=== PATIENT | female | born 1995 | race Caucasian/White ===

== ENCOUNTER 2020-09-14 15:38 | Emergency (ER) | payer OTHER, SELFPAY ==
[2020-09-14 15:48] VITALS: BP 135/77; PULSE 66; RESP 15; TEMP 36.2; O2SAT 100
[2020-09-14 16:07] LABS: Basophils Percent Auto 0.3 % (0.2-1.2); Eosinophils Absolute Auto 0.1 K/mm3 (0-0.3); Eosinophils Percent Auto 1.6 % (0-4.4); Hematocrit 37.9 % (37.0-47.0); Hemoglobin 12.7 g/dL (12.0-15.0); Immature Granulocyte Absolute 0.01 K/mm3 (0.00-0.031); Immature Granulocyte Percent A 0.2 % (0-0.5); Lymphocytes Absolute Auto 2.12 K/mm3 (0.9-3.2); Lymphocytes Percent Auto 37.1 % (18.3-44.2); Mean Corpuscular HGB Conc 33.5 g/dl (32-36); Mean Corpuscular Hemoglobin 29.3 pg (26-34); Mean Corpuscular Volume 87.5 fl (80-100); Mean Platelet Volume 10.4 fl (7.4-10.4); Monocytes Absolute Auto 0.3 K/mm3 (0.1-0.6); Monocytes Percent Auto 5.2 % (2.6-8.5); Neutrophils Absolute Auto 3.2 K/mm3 (1.3-6.7); Neutrophils Percent Auto 55.6 % (45.5-73.1); Platelet Count Result 269 k/mm3 (150-375); Red Blood Count 4.33 M/mm3 (4.2-5.4); Red Cell Distribution Width 12.5 % (11.5-14.5); White Blood Count 5.7 K/mm3 (4.5-10.0)
[2020-09-14 16:19] LABS: Alanine Aminotransferase 23 U/L (4-35); Albumin Level 4.2 g/dL (3.5-5.1); Alkaline Phosphatase 54 U/L (38-126); Anion Gap 3 mmol/L (8-16); Aspartate Amino Transferase 27 U/L (14-36); Bilirubin,Total 0.3 mg/dL (0.2-1.3); Blood Urea Nitrogen 12 mg/dL (7-17); Calcium 9.1 mg/dL (8.4-10.2); Carbon Dioxide 30 mmol/L (22-30); Chloride 106 mmol/L (98-107); Estimated CRCL calculation 91 ml/min; Estimated Glomerular Filt Rate > 60; Glucose 119 mg/dL (65-105); Potassium 3.9 mmol/L (3.4-5.0); Sodium 139 mmol/L (137-145)
[2020-09-14 16:29] VITALS: BP 140/86; PULSE 67; RESP 18; TEMP 36.5; O2SAT 100
[2020-09-14 16:46] LABS: Add Urine Microscopic? YES; Appearance Urine Clear (Clear); Bilirubin Urine Negative (Negative); Blood Urine 2+ (Negative); Color Urine Yellow (Yellow); Glucose Urine UA Negative (Negative); Ketones Urine Trace mg/dL (Negative); Leukocyte Esterase Ur Negative LEU/UL (Negative); Mucus Urine Rare /lpf; Nitrate Urine Negative (Negative); Protein Urine 1+ mg/dL (Negative); RBC Urine >75 /hpf (0-2); Specific Grav Ur 1.021 (1.001-1.035); Squamous Epithelial Cell Urine Occasional /hpf (Few); WBC Urine 0-3 /hpf
--- NOTE | 2020-09-14 17:10 | ED.FEMALEGU ---
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 Reports she has had very heavy bleeding since her period started 2 days ago. Reports she had her IUD taken out at the beginning of this year and has had heavy periods since. Reports she felt lightheaded when she stood up today which prompted her to be seen. Denies fever, abdominal pain, nausea, vomiting, or dysuria. Related Data Home Medications Medication Instructions Recorded Confirmed cetirizine mg 07/09/19 hydroxyzine HCl 09/14/20 Allergies Allergy/AdvReac Type Severity Reaction Status Date / Time No Known Allergies Allergy Verified 09/14/20 16:40 Review of Systems Review of Systems: Narrative: CONSTITUTIONAL: Denies fever GASTROINTESTINAL: Denies abdominal pain, nausea, vomiting GENITOURINARY: Denies dysuria All systems reviewed & are unremarkable except as noted in HPI and below [facility] Past Medical History Medical History (Updated 09/14/20 @ 18:14 by Sosa Silva PA-C) History of insomnia Social History Social History (Updated 09/14/20 @ 17:14 by Sosa Silva PA-C) Smoking status: Former smoker Additional smoking assessment comments: Quit smoking in 2012 Gender identity (if verbalized by the patient): Female Exam Narrative: Exam Narrative: GENERAL: Well-appearing, obese, and in no acute distress. HEAD: Normocephalic, atraumatic. EYES: EOMI. CHEST: Clear to auscultation. No respiratory distress. No wheezes rales or rhonchi HEART: Regular rate and rhythm. No murmur heard. Normal peripheral pulses. ABDOMEN: Soft, nontender, nondistended, normal active bowel sounds. EXTREMITIES: Normal range of motion. No edema. SKIN: Warm, dry, no rash. NEURO: No focal deficits. Alert and oriented x3. PSYCH: Normal mood and affect PELVIC: Normal external genitalia. Normal appearing cervix. Small amount of blood in the vaginal vault, slowly oozing from cervix Course Consultations Consultation #1: Spoke with Dr. Hurford about patient and work-up. Patient is to follow-up in clinic next week for further control planning. Date: 09/14/20 Time: 18:12 Vital Signs Vital signs: Vital Signs Temperature 97.1 F L 09/14/20 15:48 Pulse Rate 66 09/14/20 15:48 Respiratory Rate 15 09/14/20 15:48 Blood Pressure 135/77 09/14/20 15:48 Pulse Oximetry 100 09/14/20 15:48 Temperature 97.7 F 09/14/20 16:29 Pulse Rate 67 09/14/20 16:29 Respiratory Rate 18 09/14/20 16:29 Blood Pressure 140/86 09/14/20 16:29 Pulse Oximetry 100 09/14/20 16:29 MDM - Female Genitourinary MDM Narrative Medical decision making narrative: Patient presents the emergency department for heavy menstrual periods. Reports she has been having heavier cycles since she had her ADLs. Vitals are stable today. No concerning bleeding on exam. Hemoglobin is 12.7. UA without evidence of infection. Bedside test is negative. Patient was updated on case findings. Spoke with Dr. Lucas about patient and work-up. Patient is to follow-up in clinic next week for further control planning. She is stable and felt appropriate for further outpatient evaluation. She was given warnings to return to the ER Lab Data Attestation: I reviewed the patient's lab results. Result diagrams: 09/14/20 15:56 09/14/20 15:56 Labs: Lab Results 09/14/20 09/14/20 09/14/20 Range/Units 15:56 15:56 16:36 WBC 5.7 (4.5-10.0) K/mm3 RBC 4.33 (4.2-5.4) M/mm3 Hgb 12.7 (12.0-15.0) g/dL Hct 37.9 (37.0-47.0) % MCV 87.5 (80-100) fl MCH 29.3 (26-34) pg MCHC 33.5 (32-36) g/dl RDW 12.5 (11.5-14.5) %
[2020-09-14 18:05] VITALS: BP 121/56; PULSE 60; RESP 18; O2SAT 100
[2020-09-14 18:07] VITALS: BP 122/71; PULSE 64
[2020-09-14 18:09] VITALS: BP 121/71; PULSE 67
== END 2020-09-14 18:33 | disposition home or self-care (01) ==
PROVIDERS: Family Medicine; Physician Assistant; Emergency Provider Emergency Medicine; PCP Family Medicine
DX: N93.9 Abnormal uterine and vaginal bleeding, unspecified (principal); Z87.891 Personal history of nicotine dependence
CPT/HCPCS: 36415; 80053; 81001; 81025; 85025; 99284

== ENCOUNTER 2020-10-17 10:39 | Outpatient (CLI) | payer OTHER, SELFPAY ==
--- NOTE | 2020-10-17 11:30 | NEURO_ITS ---
Impression: # Complains of itching all over the body # Evolving Carpal Tunnel Syndrome. # No ulnar neuropathy. # No evidence of neuropathy. # Normal needle/EMG exam. Nerve Conduction Studies Anti Sensory Summary Table Stim Site NR Peak (ms) P-T Amp (?V) Site1 Site2 Delta-P (ms) Dist (cm) Art (m/s) Left Median Anti Sensory (2-3nd Digit) Wrist 2.7 85.8 Wrist 2-3nd Digit 2.7 14.0 52 Wrist 2.7 78.4 Wrist 2-3nd Digit 2.7 14.0 52 Right Median Anti Sensory (2-3nd Digit) Wrist 2.5 35.8 Wrist 2-3nd Digit 2.5 14.0 56 Wrist 2.6 41.6 Wrist 2-3nd Digit 2.5 14.0 56 Left Radial Anti Sensory (Base 1st Digit) Wrist 1.8 28.1 Wrist Base 1st Digit 1.8 0.0 Right Radial Anti Sensory (Base 1st Digit) Wrist 2.0 33.7 Wrist Base 1st Digit 2.0 0.0 Left Ulnar Anti Sensory (5th Digit) Wrist 2.1 43.3 Wrist 5th Digit 2.1 14.0 67 Right Ulnar Anti Sensory (5th Digit) Wrist 2.1 59.8 Wrist 5th Digit 2.1 14.0 67 Motor Summary Table Stim Site NR Onset (ms) O-P Amp (mV) Site1 Site2 Delta-0 (ms) Dist (cm) Art (m/s) Left Median Motor (Abd Poll Brev) Wrist 3.4 3.4 Elbow Wrist 3.8 26.0 68 Elbow 7.2 6.0 Right Median Motor (Abd Poll Brev) Wrist 3.7 2.6 Elbow Wrist 4.4 25.0 57 Elbow 8.1 1.9 Left Ulnar Motor (Abd Dig Minimi) Wrist 2.1 10.9 A Elbow Wrist 4.1 25.0 61 A Elbow 6.2 9.3 Right Ulnar Motor (Abd Dig Minimi) Wrist 2.2 10.7 A Elbow Wrist 4.4 27.0 61 A Elbow 6.6 10.1 F Wave Studies NR F-Lat (ms) L-R F-Lat (ms) Left Median (Mrkrs) (Abd Poll Brev) 25.55 2.42 Right Median (Mrkrs) (Abd Poll Brev) 27.97 2.42 Left Ulnar (Mrkrs) (Abd Dig Min) 25.11 1.62 Right Ulnar (Mrkrs) (Abd Dig Min) 26.73 1.62 EMG Side Muscle Nerve Root Ins Act Fibs Amp Dur Recrt Comment Right 1stDorInt Ulnar C8-T1 Nml Nml Nml Nml Nml Right Ext Indicis Radial (Post Int) C7-8 Nml Nml Nml Nml Nml Right Ext Digitorum Radial (Post Int) C7-8 Nml Nml Nml Nml Nml Right BrachioRad Radial C5-6 Nml Nml Nml Nml Nml Right PronatorTeres Median C6-7 Nml Nml Nml Nml Nml Right Abd Poll Brev Median C8-T1 Nml Nml Nml Nml Nml Left 1stDorInt Ulnar C8-T1 Nml Nml Nml Nml Nml Left Ext Indicis Radial (Post Int) C7-8 Nml Nml Nml Nml Nml Left Ext Digitorum Radial (Post Int) C7-8 Nml Nml Nml Nml Nml Left BrachioRad Radial C5-6 Nml Nml Nml Nml Nml Left PronatorTeres Median C6-7 Nml Nml Nml Nml Nml Left Abd Poll Brev Median C8-T1 Nml Nml Nml Nml Nml MTDD
== END 2020-10-17 10:40 | disposition home or self-care (01) ==
LOC: ANHNEURO 10:40
PROVIDERS: PCP Family Medicine; Visit Provider Family Medicine
DX: R20.2 Paresthesia of skin (principal)
CPT/HCPCS: 95886; 95911

== ENCOUNTER 2021-03-02 22:09 | Emergency (ER) | payer OTHER, SELFPAY ==
--- NOTE | ~2021-03-02 | US_ITS ---
EXAMINATION: US OB <=14 wk fetus w TV DATE: 03/02/2021 23:38 INDICATION: Bleeding during first trimester TECHNIQUE: Real-time pelvic transabdominal and transvaginal ultrasound was performed. COMPARISON: None. FINDINGS: The uterus measures 12.9 x 7.1 x 6.8 cm. No intrauterine gestational sac is identified. Th ere is mild thickening of the endometrium which measures up to 17 mm. The right ovary measures 2.6 x 1.3 x 1.7 cm. The left ovary measures 4.4 x 2.6 x 2.5 cm. There is a 2.7 x 1.8 x 1.9 cm cystic lesion of the left ovary with a peripheral isoechoic component. There is normal vascular flow in the ovarie s. There is no free fluid in the pelvis. IMPRESSION: 1. of unknown location. Although no intrauterine gestational sac is seen, this may be due t o early gestation. If the patient is clinically stable, recommend followup with serial beta-hCG and u ltrasound. Reviewed, dictated and finalized at location A. IMPRESSION: 1. of unknown location. Although no intrauterine gestational sac is s een, this may be due to early gestation. If the patient is clinically stable, r ecommend followup with serial beta-hCG and ultrasound.
[2021-03-02 22:11] VITALS: BP 123/67; PULSE 87; RESP 12; TEMP 36.7; O2SAT 98
--- NOTE | 2021-03-02 22:35 | ED.GENADULT ---
HPI - General Adult General Chief complaint: Vaginal Bleeding Stated complaint: and spotting. Time Seen by Provider: 03/02/21 22:23 Source: RN notes reviewed History of Present Illness HPI narrative: Patient presents emergency department from home for vaginal spotting. Patient states that she began to have some vaginal spotting this evening. She states that she just found out she had a positive test earlier this week. The patient is G6, P3 and is followed by Dr. Lucas. States she has a history of a recent miscarriage in December she states she has had some intermittent episodes of brief 1 to 2 seconds of sharp stabbing lower abdominal pain over the past week but denies any pain at this time she denies any fevers or chills nausea vomiting Related Data Home Medications Medication Instructions Recorded Confirmed cetirizine mg 07/09/19 hydroxyzine HCl 09/14/20 Allergies Allergy/AdvReac Type Severity Reaction Status Date / Time No Known Allergies Allergy Verified 09/14/20 16:40 Review of Systems Review of Systems: Gen.: Denies fevers or chills ENT: Denies congestion Respiratory: Denies shortness of breath or cough CV: Denies chest pain or palpitations GI: Denies nausea, emesis or diarrhea reports intermittent episodes of sharp stabbing lower abdominal pain no pain currently see HPI Musculoskeletal: Denies back pain or muscle pain Neuro: Denies numbness, tingling, weakness or focal weakness Skin: Denies rash Except as documented, all other systems reviewed and negative [facility] Past Medical History Medical History History of insomnia Social History Social History Smoking status: Former smoker Additional smoking assessment comments: Quit smoking in 2012 Gender identity (if verbalized by the patient): Female Exam Narrative: APPEARANCE: No acute distress, nontoxic, resting in bed EYES: EOMI HEENT: Normocephalic, atraumatic, OMM RESPIRATORY: No respiratory distress Clear to auscultation bilaterally with no rhonchi wheezing or rales. CARDIOVASCULAR: Regular rate and rhythm without murmurs rubs or gallops. ABDOMINAL: Soft, nontender, nondistended, no rebound or guarding MUSCULOSKELETAl: Moves all extremities. NEURO: Awake and alert. Following commands, speech normal, no focal deficits SKIN:: Warm, dry. No rashes lesions or abrasions PSYCHIATRIC: Normal affect/mood, Course Course Emergency Course: Discussed Dr. Lucas presentation work-up agrees plan for discharge to follow-up as an outpatient Reviewed old records patient had AB+ blood type from 03/10/2017 Discussed with patient results of workup and diagnosis. Discussed need for follow-up with primary care, proper use of medication, and reasons to return to the emergency department. Patient understands and agrees to current treatment plan Vital Signs Vital signs: Vital Signs Temperature 98.0 F 03/02/21 22:11 Pulse Rate 87 03/02/21 22:11 Respiratory Rate 12 03/02/21 22:11 Blood Pressure 123/67 03/02/21 22:11 Pulse Oximetry 98 03/02/21 22:11 Temperature 98.0 F 03/02/21 22:11 Pulse Rate 81 03/03/21 00:17 Respiratory Rate 17 03/03/21 00:17 Blood Pressure 130/74 03/03/21 00:17 Pulse Oximetry 99 03/03/21 00:17 Medical Decision Making Vital Signs Vital Signs: Vital Signs Temperature 98.0 F 03/02/21 22:11 Pulse Rate 87 03/02/21 22:11 Respiratory Rate 12 03/02/21 22:11 Blood Pressure 123/67 03/02/21 22:11 Pulse Oximetry 98 03/02/21 22:11 Temperature 98.0 F 03/02/21 22:11 Pulse Rate 81 03/03/21 00:17 Respiratory Rate 17 03/03/21 00:17 Blood Pressure 130/74 03/03/21 00:17 Pulse Oximetry 99 03/03/21 00:17 Lab Data Result diagrams: 03/02/21 22:50 Labs: Lab Results 03/02/21 03/02/21 03/02/21 Range/Units 22:44 22:50 22:50 WBC
[2021-03-02 23:02] LABS: Basophils Percent Auto 0.3 % (0.2-1.2); Eosinophils Absolute Auto 0.1 K/mm3 (0-0.3); Eosinophils Percent Auto 0.9 % (0-4.4); Hemoglobin 12.4 g/dL (12.0-15.0); Immature Granulocyte Absolute 0.02 K/mm3 (0.00-0.031); Immature Granulocyte Percent A 0.3 % (0-0.5); Lymphocytes Absolute Auto 2.43 K/mm3 (0.9-3.2); Lymphocytes Percent Auto 30.6 % (18.3-44.2); Mean Corpuscular HGB Conc 33.5 g/dl (32-36); Mean Corpuscular Hemoglobin 29.8 pg (26-34); Mean Corpuscular Volume 88.9 fl (80-100); Mean Platelet Volume 10.3 fl (7.4-10.4); Monocytes Absolute Auto 0.4 K/mm3 (0.1-0.6); Monocytes Percent Auto 5.4 % (2.6-8.5); Neutrophils Percent Auto 62.5 % (45.5-73.1); Platelet Count Result 262 k/mm3 (150-375); Red Blood Count 4.16 M/mm3 (4.2-5.4); Red Cell Distribution Width 12.6 % (11.5-14.5); White Blood Count 7.9 K/mm3 (4.5-10.0)
[2021-03-02 23:09] LABS: Add Urine Microscopic? YES; Appearance Urine Clear (Clear); Bilirubin Urine Negative (Negative); Blood Urine Negative (Negative); Color Urine Yellow (Yellow); Glucose Urine UA Negative (Negative); Ketones Urine Negative (Negative); Leukocyte Esterase Ur Negative LEU/UL (Negative); Mucus Urine Rare /lpf; Nitrate Urine Negative (Negative); Protein Urine Negative (Negative); Specific Grav Ur 1.028 (1.001-1.035); Squamous Epithelial Cell Urine Moderate /hpf (Few); WBC Urine 0-3 /hpf
[2021-03-03 00:17] VITALS: BP 130/74; PULSE 81; RESP 17; O2SAT 99
[2021-03-03 01:18] VITALS: BP 121/80; PULSE 74; RESP 15; O2SAT 100
== END 2021-03-03 01:19 | disposition home or self-care (01) ==
PROVIDERS: Emergency Provider Emergency Medicine; PCP Family Medicine
DX: O20.0 Threatened abortion (principal); Z87.891 Personal history of nicotine dependence; Z3A.01 Less than 8 weeks gestation of pregnancy
CPT/HCPCS: 36415; 76801; 76817; 81001; 81025; 84702; 85025; 85461; 99284

== ENCOUNTER 2021-03-05 13:21 | Outpatient (RCR) | payer OTHER, SELFPAY | END 2021-03-09 23:59 | disposition home or self-care (01) | LOC: ANHLAB 13:21 | PROVIDERS: PCP Family Medicine; Visit Provider Obstetrics & Gynecology | DX: N92.5 Other specified irregular menstruation (principal) | CPT/HCPCS: 36415; 84702 ==

== ENCOUNTER 2021-03-12 12:25 | Outpatient (CLI) | payer OTHER, SELFPAY | END 2021-03-12 12:26 | disposition home or self-care (01) | PROVIDERS: PCP Family Medicine; Visit Provider Obstetrics & Gynecology | DX: O20.0 Threatened abortion (principal) | CPT/HCPCS: 36415; 84702 ==

== ENCOUNTER 2021-04-15 14:17 | Emergency (ER) | payer OTHER, SELFPAY ==
[2021-04-15 14:37] VITALS: BP 122/69; PULSE 90; RESP 16; TEMP 36.6; O2SAT 100
[2021-04-15 17:34] VITALS: BP 127/70; PULSE 93; RESP 18; O2SAT 100
--- NOTE | 2021-04-15 18:46 | ED.GENADULT ---
HPI - General Adult General Chief complaint: Unspecified <Dilma Balderas PA-C - Last Filed: 04/15/21 18:58> Stated complaint: my cervix is sticking out <Dilma Balderas PA-C - Last Filed: 04/15/21 18:58> Time Seen by Provider: 04/15/21 17:29 <Dilma Balderas PA-C - Last Filed: 04/15/21 18:58> Source: patient <Dilma Balderas PA-C - Last Filed: 04/15/21 18:58> Mode of arrival: ambulatory <Dilma Balderas PA-C - Last Filed: 04/15/21 18:58> Limitations: no limitations <SHEILA Brice Last Filed: 04/15/21 18:58> History of Present Illness HPI narrative: Patient is G6, P3 with chief complaint of feeling her cervix hanging out of her vagina. Patient states that she feels a pressure-like sensation in her vaginal cavity. Patient denies any vaginal bleeding or discharge. Patient denies any vaginal or pelvic cramping. Patient states that her MANAGER MEAT is Dr. Lucas. She reports she has had 2 prior miscarriages. Patient denies having a cerclage in place. Patient denies any other symptoms. <Dilma Balderas PA-C - Last Filed: 04/15/21 18:58> Related Data Home medications: Home Medications Medication Instructions Recorded Confirmed cetirizine mg 07/09/19 hydroxyzine HCl 09/14/20 <Dilma Balderas PA-C - Last Filed: 04/15/21 18:58> Allergies/adverse reactions: Allergies Allergy/AdvReac Type Severity Reaction Status Date / Time No Known Allergies Allergy Verified 04/15/21 17:28 <SHEILA Brice Last Filed: 04/15/21 18:58> Review of Systems Review of Systems: CONSTITUTIONAL: Denies fever, chills, or sweats. EYES: Denies visual changes, redness, or discharge. ENT: Denies rhinorrhea, congestion, sore throat, or otalgia. CARDIOVASCULAR: Denies chest pain, palpitations, or edema. RESPIRATORY: Denies cough or dyspnea. GASTROINTESTINAL: Denies abdominal pain, nausea, vomiting, or diarrhea. GENITOURINARY: Reports vaginal complaint denies dysuria or hematuria. SKIN: Denies rash or itching. MUSCULOSKELETAL: Denies back pain, joint pain, or myalgia. NEUROLOGIC: Denies headache, numbness, dizziness, or weakness. PSYCHIATRIC: Denies anxiety or depression. <Dilma Balderas PA-C - Last Filed: 04/15/21 18:58> PMFSH Past Medical History Medical History: Medical History History of insomnia <Dilma Balderas PA-C - Last Filed: 04/15/21 18:58> Social History Social History: Social History Smoking status: Former smoker Additional smoking assessment comments: Quit smoking in 2012 Gender identity (if verbalized by the patient): Female <Dilma Balderas PA-C - Last Filed: 04/15/21 18:58> Exam Narrative: GENERAL: Well-appearing, well-nourished, and in no acute distress. HEAD: Normocephalic, atraumatic. EYES: PERRLA and EOMI. CHEST: Clear to auscultation. No respiratory distress. No wheezes rales or rhonchi HEART: Regular rate and rhythm. No murmur heard. Normal peripheral pulses. PELVIC: Cervix is sitting pretty low in the vaginal canal approx 5-6 inches inward. cervical mucus plug present. No bleeding or tissues noted. Not tender with exam. EXTREMITIES: Normal range of motion. No edema. SKIN: Warm, dry, no rash. NEURO: No focal deficits. Alert and oriented x3. PSYCH: Normal mood and affect. <Dilma Balderas PA-C - Last Filed: 04/15/21 18:58> Course Vital Signs Vital signs: Vital Signs Temperature 36.6 C 04/15/21 14:37 Pulse Rate 90 04/15/21 14:37 Respiratory Rate 16 04/15/21 14:37 Blood Pressure 122/69 04/15/21 14:37 Pulse Oximetry 100 04/15/21 14:37 Temperature 36.6 C 04/15/21 14:37 Pulse Rate 93 04/15/21 17:34 Respiratory Rate 18 04/15/21 17:34 Blood Pressure 127/70 04/15/21 17:34 Pulse Oximetry 100 04/15/21 17:34 <Dilma Balderas PA-C - Last Filed: 04/15/21 18:58> Medi
== END 2021-04-15 19:02 | disposition home or self-care (01) ==
PROVIDERS: Emergency Provider Emergency Medicine; PCP Family Medicine
DX: Q51.9 Congenital malformation of uterus and cervix, unspecified (principal)
CPT/HCPCS: 99284

== ENCOUNTER 2021-04-25 10:51 | Outpatient (RCR) | payer OTHER, SELFPAY ==
[2021-04-25 12:24] LABS: Hematocrit 35.6 % (37.0-47.0); Hemoglobin 12.3 g/dL (12.0-15.0); Mean Corpuscular HGB Conc 34.6 g/dl (32-36); Mean Corpuscular Hemoglobin 31.7 pg (26-34); Mean Corpuscular Volume 91.8 fl (80-100); Mean Platelet Volume 10.5 fl (7.4-10.4); Platelet Count Result 205 k/mm3 (150-375); Red Blood Count 3.88 M/mm3 (4.2-5.4); Red Cell Distribution Width 12.8 % (11.5-14.5); White Blood Count 10.5 K/mm3 (4.5-10.0)
[2021-04-25 12:29] LABS: Glucose 1 Hour PP 50gm Dose 118 mg/dL
[2021-04-25 13:11] LABS: HIV 1/2 Ab P24 Ag Result Negative (Negative)
[2021-04-25 13:13] LABS: Hepatitis B Surface Antigen Negative (Negative); Rubella IgG Antibody 15.9 IU/ML
[2021-04-28 07:23] LABS: Rapid Plasma Reagin Non-Reactive (NonReactive)
[2021-04-30 09:18] LABS: CMV IgG Antibody <0.60 U/mL (<0.60)
== END 2021-07-24 23:59 | disposition home or self-care (01) ==
LOC: ANHLAB 10:51
PROVIDERS: PCP Family Medicine; Visit Provider Obstetrics & Gynecology
DX: Z34.91 Encounter for supervision of normal pregnancy, unspecified, first trimester (principal); Z3A.00 Weeks of gestation of pregnancy not specified
CPT/HCPCS: 36415; 82947; 84702; 85027; 86592; 86644; 86703; 86747; 86762; 86787; 86850; 86900; 86901; 87086; 87340; G0432

== ENCOUNTER 2021-06-10 14:30 | Outpatient (CLI) | payer OTHER, SELFPAY ==
[2021-06-18 14:21] LABS: AFP, Serum 64.4; Estriol, Free 1.71; Inhibin A, Dimeric 238; hCG MoM 0.81; hCG, Serum 14.5
[2021-06-18 14:22] LABS: Maternal Weight 220; Number of Fetuses 1
[2021-06-18 14:23] LABS: Cigarette Smoker Not Given
[2021-06-20 14:31] LABS: IVFPREG? Not Given
== END 2021-06-10 14:31 | disposition home or self-care (01) ==
LOC: ANHLAB 14:33
PROVIDERS: PCP Family Medicine; Visit Provider Obstetrics & Gynecology
DX: Z34.91 Encounter for supervision of normal pregnancy, unspecified, first trimester (principal)
CPT/HCPCS: 36415; 82105; 82677; 84702; 86336

== ENCOUNTER 2021-08-10 14:49 | Emergency (ER) | payer OTHER, SELFPAY ==
[2021-08-10 15:17] VITALS: BP 110/53; PULSE 78; RESP 18; TEMP 36.5; O2SAT 100
--- NOTE | 2021-08-10 17:16 | ECG_ITS ---
Measurements Intervals [place] Rate: 72 P: 16 WA: 143 QRS: 34 QRSD: 86 T: -9 QT: 384 QTc: 422 Interpretive Statements SINUS RHYTHM DELAYED PRECORDIAL R/S TRANSITION BORDERLINE ST-T WAVE ABNORMALITY- INFERIOR LEADS BORDERLINE ECG Electronically Signed On 08-10-2021 20:20:54 POEM WRITER [address] D.O.
[2021-08-10 17:18] VITALS: BP 119/59; PULSE 75; RESP 27; O2SAT 100
[2021-08-10 17:38] LABS: Glucose Point of Care 71 mg/dl (65-105)
--- NOTE | 2021-08-10 17:40 | ED.GENADULT ---
HPI - General Adult General Chief complaint: Dizziness Stated complaint: LIGHTHEADED Time Seen by Provider: 08/10/21 17:34 Source: patient Mode of arrival: ambulatory Limitations: no limitations History of Present Illness HPI narrative: Patient is a 26-year-old female complaining of feeling lightheaded, worse when she gets up suddenly or when she turns her head, started yesterday. Patient states that she is 26 weeks . Patient states that she has had care during this . Patient denies any abdominal pain, vaginal bleeding or discharge. Patient denies any chest pain, shortness of breath, nausea, vomiting, diarrhea, fever, chills. Related Data Home Medications Medication Instructions Recorded Confirmed vitamins-iron fumarate 65 1 tablet PO DAILY 07/29/21 07/29/21 mg iron-folic acid 1 mg tablet Allergies Allergy/AdvReac Type Severity Reaction Status Date / Time No Known Allergies Allergy Verified 07/29/21 15:56 Review of Systems Review of Systems: All systems reviewed & are unremarkable except as noted in HPI and below Constitutional: Constitutional: Denies body ache(s), Denies chills, Denies excessive sweating, Denies fatigue, Denies fever(s), Denies headache(s), Denies lethargy, Denies malaise and Denies weight loss Eyes: Eyes: Denies blurry vision, Denies change in vision and Denies loss of vision ENT: Denies dizziness, Denies ear discharge, Denies headache(s), Denies lip swelling, Denies epistaxis, Denies nasal congestion, Denies neck pain, Denies throat swelling and Denies tongue swelling Cardiovascular: Cardiovascular: Denies chest pain, Denies chest pain at rest, Denies chest pain with activity, Denies diaphoresis, Denies rapid heart rate, Denies edema, Denies irregular heart rhythm, Denies lightheadedness, Denies palpitations, Denies dyspnea and Denies dyspnea on exertion Respiratory: Respiratory: Denies chest congestion, Denies cough, Denies hemoptysis, Denies dyspnea and Denies dyspnea on exertion Gastrointestinal: Gastrointestinal: Denies abdominal pain, Denies melena, Denies hematochezia, Denies diarrhea, Denies nausea, Denies vomiting and Denies hematemesis Musculoskeletal: Musculoskeletal: Denies abnormal gait, Denies deformity, Denies joint swelling, Denies limited range of motion, Denies neck pain and Denies numbness Neurologic: Denies Abnormal speech present, Denies abnormal gait, Denies confusion, Denies dizziness, Denies headache(s), Denies focal weakness, Denies loss of vision, Denies numbness, Denies Other visual disturbances and Denies Sensory deficit (Neuro) Psychiatric: Psychiatric: Denies confusion, Denies depression, Denies auditory hallucinations, Denies homicidal ideation and Denies suicidal ideation Endocrine: Endocrine: Denies cold intolerance, Denies excessive sweating, Denies fatigue, Denies heat intolerance and Denies palpitations Hematologic/Lymphatic: Hematologic/Lymphatic: Denies easy bleeding and Denies easy bruising Allergic/Immunologic: Allergic/Immunologic: Denies lip swelling, Denies throat swelling and Denies tongue swelling PMFSH Past Medical History Medical History Allergies Anemia Back problem Ear problem Encounter for insertion of mirena IUD 01/04/13 insertion 03/23/13 removal Encounter for insertion of ParaGard IUD 04/30/17 insertion 07/30/20 removal Heartburn History of frequent headaches History of insomnia IBS (irritable bowel syndrome) Missed 01/09/21 suction d&c Thyroid nodule Surgical History Surgical History H/O endoscopic sinus surgery 12/19/19 maxillary sinus History of bladder surgery 03/01/18 Family History Family History Grandparent Cervical cancer maternal grandmother Diabetes mellitus maternal grandmother Mother Di
[2021-08-10] MEDS: PROMETHAZINE HCL 25 MG/ML AMPUL 12.5 MG IV PUSH (17:51)
[2021-08-10] MEDS: SODIUM CHLORIDE 0.9% IV 1,000 ML 999 ML IV CONT (17:51)
[2021-08-10 17:52] LABS: Basophils Percent Auto 0.2 % (0.2-1.2); Eosinophils Percent Auto 0.3 % (0-4.4); Hematocrit 36.5 % (37.0-47.0); Hemoglobin 12.2 g/dL (12.0-15.0); Immature Granulocyte Absolute 0.05 K/mm3 (0.00-0.031); Immature Granulocyte Percent A 0.4 % (0-0.5); Lymphocytes Absolute Auto 1.59 K/mm3 (0.9-3.2); Lymphocytes Percent Auto 12.4 % (18.3-44.2); Mean Corpuscular HGB Conc 33.4 g/dl (32-36); Mean Corpuscular Hemoglobin 32.4 pg (26-34); Mean Corpuscular Volume 96.8 fl (80-100); Mean Platelet Volume 10.6 fl (7.4-10.4); Monocytes Absolute Auto 0.5 K/mm3 (0.1-0.6); Monocytes Percent Auto 3.8 % (2.6-8.5); Neutrophils Absolute Auto 10.6 K/mm3 (1.3-6.7); Neutrophils Percent Auto 82.9 % (45.5-73.1); Platelet Count Result 175 k/mm3 (150-375); Red Blood Count 3.77 M/mm3 (4.2-5.4); Red Cell Distribution Width 12.3 % (11.5-14.5); White Blood Count 12.8 K/mm3 (4.5-10.0)
[2021-08-10 17:59] LABS: Add Urine Microscopic? YES; Appearance Urine Cloudy (Clear); Bacteria Urine Trace /hpf; Bilirubin Urine Negative (Negative); Blood Urine Negative (Negative); Color Urine Yellow (Yellow); Glucose Urine UA Negative (Negative); Ketones Urine 1+ mg/dL (Negative); Leukocyte Esterase Ur Trace LEU/UL (Negative); Mucus Urine Rare /lpf; Nitrate Urine Negative (Negative); Protein Urine Negative (Negative); RBC Urine 0-2 /hpf (0-2); Specific Grav Ur 1.011 (1.001-1.035); Squamous Epithelial Cell Urine Many /hpf (Few); Urobilinogen Urine Negative mg/dL (<2.0); WBC Urine 0-3 /hpf
[2021-08-10 18:02] LABS: Alanine Aminotransferase 15 U/L (4-35); Albumin Level 3.7 g/dL (3.5-5.1); Alkaline Phosphatase 98 U/L (38-126); Anion Gap 4 mmol/L (8-16); Aspartate Amino Transferase 19 U/L (14-36); Bilirubin,Total 0.5 mg/dL (0.2-1.3); Blood Urea Nitrogen 5 mg/dL (7-17); Calcium 8.8 mg/dL (8.4-10.2); Carbon Dioxide 23 mmol/L (22-30); Chloride 107 mmol/L (98-107); Estimated CRCL calculation 160 ml/min; Estimated Glomerular Filt Rate > 60; Glucose 74 mg/dL (65-110); Potassium 3.5 mmol/L (3.4-5.0); Sodium 134 mmol/L (137-145)
[2021-08-10 18:23] VITALS: BP 116/63; PULSE 80; RESP 17; O2SAT 100
[2021-08-10 19:19] VITALS: BP 117/68; PULSE 73; RESP 22; O2SAT 100
== END 2021-08-10 19:47 | disposition home or self-care (01) ==
PROVIDERS: Emergency Provider Emergency Medicine; PCP Family Medicine
DX: O99.891 Other specified diseases and conditions complicating pregnancy (principal); H81.10 Benign paroxysmal vertigo, unspecified ear; O99.012 Anemia complicating pregnancy, second trimester; D64.9 Anemia, unspecified; O99.612 Diseases of the digestive system complicating pregnancy, second trimester; K58.9 Irritable bowel syndrome, unspecified; Z87.891 Personal history of nicotine dependence; Z3A.26 26 weeks gestation of pregnancy; R94.31 Abnormal electrocardiogram [ECG] [EKG]
CPT/HCPCS: 36415; 80053; 81001; 82948; 85025; 93005; 96361; 96374; 99284; J2550; J7030

== ENCOUNTER 2021-09-01 12:04 | Outpatient (CLI) | payer OTHER, SELFPAY ==
[2021-09-01 13:50] LABS: Hematocrit 32.7 % (37.0-47.0); Hemoglobin 11.3 g/dL (12.0-15.0); Mean Corpuscular HGB Conc 34.6 g/dl (32-36); Mean Corpuscular Hemoglobin 32.2 pg (26-34); Mean Corpuscular Volume 93.2 fl (80-100); Mean Platelet Volume 10.9 fl (7.4-10.4); Platelet Count Result 168 k/mm3 (150-375); Red Blood Count 3.51 M/mm3 (4.2-5.4); Red Cell Distribution Width 12.2 % (11.5-14.5); White Blood Count 13.1 K/mm3 (4.5-10.0)
[2021-09-01 13:59] LABS: Glucose 1 Hour PP 50gm Dose 149 mg/dL
[2021-09-01 14:39] LABS: HIV 1/2 Ab P24 Ag Result Negative (Negative)
== END 2021-09-01 12:05 | disposition home or self-care (01) ==
LOC: ANHLAB 12:07
PROVIDERS: PCP Family Medicine; Visit Provider Obstetrics & Gynecology
DX: Z34.90 Encounter for supervision of normal pregnancy, unspecified, unspecified trimester (principal); Z3A.00 Weeks of gestation of pregnancy not specified
CPT/HCPCS: 36415; 82947; 85027; 86703; G0432

== ENCOUNTER 2021-09-15 14:54 | Observation (INO) | payer OTHER, SELFPAY ==
[2021-09-15 15:13] VITALS: BMI 44.3
--- NOTE | 2021-09-15 15:14 | OBADM ---
This patient, Simin Summers, admitted to the OB room OB Post [facility] for observation. Patient/family oriented to hospital policies and general routines including ID bracelet, bed and alarms, visiting hours, pain management, procedures, bathroom and other care routines, personal items, smoking policy, room service/diet, and visiting hours. Patient/Family are encouraged to report perceived risks to care and to ask questions if they do not understand what they are told or what they should do.
[2021-09-15 15:16] VITALS: BP 135/59; PULSE 99
[2021-09-15 15:31] VITALS: BP 128/72; PULSE 94
[2021-09-15 15:46] VITALS: BP 138/62; PULSE 96
--- NOTE | 2021-09-15 15:46 | PM.OBTRLD ---
OB - Triage/Final Diagnosis Visit Information Comments/Additional reasons for admission: I have assessed the risk for this patient, Simin Summers, and determined that she would benefit from observation care. Evaluation Vital signs: Vital Signs - 24 hr 09/15/21 15:16 09/15/21 15:31 09/15/21 15:46 Pulse Rate 99 94 96 Blood Pressure 135/59 L 128/72 138/62 Final Diagnosis (1) Nausea/vomiting in : Code(s): O21.9 - Vomiting of , unspecified Status: Acute
[2021-09-15 16:01] VITALS: BP 135/65; PULSE 102
[2021-09-15 16:26] LABS: Glucose Point of Care 93 mg/dl (65-105)
[2021-09-15] MEDS: DEXTROSE 5%/0.45% SOD CHL 1,000 ML 125 ML IV CONT ×2 (16:26→17:25)
[2021-09-15] MEDS: ONDANSETRON INJ 4 MG/2 ML VIAL IV PUSH (16:26)
[2021-09-15] MEDS: FAMOTIDINE 20 MG/2 ML VIAL IV PUSH (16:26)
[2021-09-15 17:51] LABS: Add Urine Microscopic? YES; Appearance Urine Cloudy (Clear); Bacteria Urine Trace /hpf; Bilirubin Urine Negative (Negative); Blood Urine Negative (Negative); Color Urine Yellow (Yellow); Glucose Urine UA Negative (Negative); Ketones Urine 2+ mg/dL (Negative); Leukocyte Esterase Ur Trace LEU/UL (NEGATIVE); Mucus Urine Rare /lpf; Nitrate Urine Negative (Negative); Protein Urine Negative (Negative); Specific Grav Ur 1.024 (1.001-1.035); Squamous Epithelial Cell Urine Many /hpf (Few); Urobilinogen Urine Negative mg/dL (<2.0)
[2021-09-15 18:00] VITALS: TEMP 37.4
--- NOTE | 2021-09-15 18:37 | PC.NURSE ---
paged Dr. Lucas @ [phone] Dr. Lucas responded to page @[phone]- labs reviewed. orders received to d/c pt home with instructions on when to return to labor and delivery or call the office.
== END 2021-09-15 19:30 | disposition home or self-care (01) ==
PROVIDERS: Admitting Provider Obstetrics & Gynecology; PCP Family Medicine; Visit Provider Obstetrics & Gynecology
DX: O21.9 Vomiting of pregnancy, unspecified (principal); Z3A.33 33 weeks gestation of pregnancy
CPT/HCPCS: 81001; 82948; 87086; 87088; 96361; 96365; 96375; G0378; G0379; J0131; J2405

== ENCOUNTER 2021-10-02 10:11 | Outpatient (CLI) | payer OTHER, SELFPAY ==
[2021-10-02 10:42] LABS: Glucose Fasting Gestational 92 mg/dL (>/=95)
[2021-10-02 12:14] LABS: Glucose 1 Hour Gest 178 mg/dL (>/=180)
[2021-10-02 13:18] LABS: Glucose 2 Hour Gest 159 mg/dL (>/= 155)
[2021-10-02 14:10] LABS: Glucose 3 Hour Gest 86 mg/dL (>/=140)
== END 2021-10-02 10:12 | disposition home or self-care (01) ==
LOC: ANHLAB 10:13
PROVIDERS: PCP Family Medicine; Visit Provider Obstetrics & Gynecology
DX: O99.810 Abnormal glucose complicating pregnancy (principal); Z3A.33 33 weeks gestation of pregnancy
CPT/HCPCS: 36415; 82951; 82952

== ENCOUNTER 2021-11-01 14:30 | Outpatient (CLI) | payer OTHER, SELFPAY ==
[2021-11-01 15:00] VITALS: BP 120/77; PULSE 89
[2021-11-01 15:01] VITALS: BP 133/74; PULSE 86
[2021-11-01 15:06] LABS: Basophils Percent Auto 0.2 % (0.2-1.2); Eosinophils Percent Auto 0.3 % (0-4.4); Hematocrit 37.5 % (37.0-47.0); Hemoglobin 12.6 g/dL (12.0-15.0); Immature Granulocyte Absolute 0.08 K/mm3 (0.00-0.031); Immature Granulocyte Percent A 0.7 % (0-0.5); Lymphocytes Absolute Auto 1.61 K/mm3 (0.9-3.2); Lymphocytes Percent Auto 14.1 % (18.3-44.2); Mean Corpuscular HGB Conc 33.6 g/dl (32-36); Mean Corpuscular Hemoglobin 31.7 pg (26-34); Mean Corpuscular Volume 94.5 fl (80-100); Mean Platelet Volume 11.2 fl (7.4-10.4); Monocytes Absolute Auto 0.6 K/mm3 (0.1-0.6); Monocytes Percent Auto 5.4 % (2.6-8.5); Neutrophils Absolute Auto 9.1 K/mm3 (1.3-6.7); Neutrophils Percent Auto 79.3 % (45.5-73.1); Platelet Count Result 182 k/mm3 (150-375); Red Blood Count 3.97 M/mm3 (4.2-5.4); Red Cell Distribution Width 12.7 % (11.5-14.5); White Blood Count 11.5 K/mm3 (4.5-10.0)
[2021-11-01 15:15] LABS: Alanine Aminotransferase 14 U/L (4-35); Albumin Level 3.5 g/dL (3.5-5.1); Alkaline Phosphatase 176 U/L (38-126); Anion Gap 5 mmol/L (8-16); Aspartate Amino Transferase 21 U/L (14-36); Bilirubin,Total 0.1 mg/dL (0.2-1.3); Blood Urea Nitrogen 7 mg/dL (7-17); Calcium 9.2 mg/dL (8.4-10.2); Carbon Dioxide 19 mmol/L (22-30); Chloride 108 mmol/L (98-107); Estimated Glomerular Filt Rate > 60; Glucose 84 mg/dL (65-110); Potassium 4.3 mmol/L (3.4-5.0); Sodium 132 mmol/L (137-145)
[2021-11-01 15:16] VITALS: BP 117/61; PULSE 81
[2021-11-01 15:21] VITALS: BP 117/61; PULSE 81
[2021-11-01 15:22] VITALS: BP 120/77; PULSE 94
[2021-11-01 15:25] LABS: Add Urine Microscopic? YES; Appearance Urine Cloudy (Clear); Bacteria Urine 1+ /hpf; Bilirubin Urine Negative (Negative); Blood Urine Negative (Negative); Color Urine Yellow (Yellow); Glucose Urine UA Negative (Negative); Ketones Urine Negative (Negative); Leukocyte Esterase Ur 2+ LEU/UL (NEGATIVE); Mucus Urine Rare /lpf; Nitrate Urine Negative (Negative); Protein Urine Negative (Negative); Specific Grav Ur 1.015 (1.001-1.035); Squamous Epithelial Cell Urine Many /hpf (Few); Urobilinogen Urine Negative mg/dL (<2.0); WBC Urine 31-50 /hpf (0-3)
[2021-11-01 15:26] LABS: Creatinine Urine 98.3 mg/dL; Total Protein Urine Random 14 mg/dL; Ur Ttl Prot Creatinine Ratio 0.14 mg/mg (0-0.20)
[2021-11-01 15:31] VITALS: BP 132/78; PULSE 71
--- NOTE | 2021-11-01 15:31 | PC.NURSE ---
Dr. Rajan updated of pt labs and strip. Order received for pt to complete a 24hour urine.
[2021-11-01 15:55] VITALS: BMI 43.7
== END 2021-11-01 15:51 | disposition home or self-care (01) ==
LOC: ANHOBOP 14:40 → ANHOBPP 14:41
PROVIDERS: Obstetrics & Gynecology Gynecology; PCP Family Medicine; Visit Provider Obstetrics & Gynecology
DX: O13.9 Gestational [pregnancy-induced] hypertension without significant proteinuria, unspecified trimester (principal); Z3A.00 Weeks of gestation of pregnancy not specified
CPT/HCPCS: 36415; 59025; 80053; 81001; 82570; 84156; 84550; 85025; 87086; 87088; 99199

== ENCOUNTER 2021-11-02 09:29 | Inpatient (IN) | payer OTHER, SELFPAY ==
[2021-11-02] VITALS (16 sets, daily range): BP systolic 114–150; BP diastolic 53–89; PULSE 63–82; RESP 18; TEMP 36.3–37.2; BMI 43.7
--- NOTE | 2021-11-02 09:29 | LDADM ---
This patient, Simin Summers, was admitted to Labor/Delivery/Recovery 106 on 11/02/21 at 09:29. Plans for labor, pain management and were discussed with patient. Patient/family oriented to hospital policies and general routines including ID bracelet, bed and alarms, visiting hours, pain management, procedures, bathroom and other care routines, personal items, smoking policy, room service/diet and guest tray routines, security routines, and visiting hours. Patient/Family are encouraged to report perceived risks to care and to ask questions if they do not understand what they are told or what they should do. See OBIX for further documentation.
--- OUTSIDE RECORDS SUMMARY | 2021-11-02 09:41 | XMS_ITS ---
:1995 Author Care Team Providers Name Role Phone YAIR ARAGON [facility] Primary Care Provider [phone] Allergies Code Code System Name Reaction Severity Status Onset NKDA ? Medications Name Status Start Date Stop Date ? ? albuterol sulfate HFA 90 mcg/actuation Active ? Not available aerosol inhaler azithromycin 250 mg tablet Completed ? 06/14 cefdinir 300 mg capsule Completed ? 06/14/20 20 TAKE 1 CAPSULE BY MOUTH TWICE A DAY cephalexin 500 mg capsule Completed ? 2019 TAKE 1 CAPSULE BY MOUTH TWICE A DAY FOR 7 DAYS cetirizine 10 mg tablet Active ? Not avai lable ergocalciferol (vitamin D2) 1,250 mcg (50,000 unit) capsule Comp leted ? 06/14/2020 TAKE ONE CAPSULE BY MOUTH EVERY WEEK FOR 8 WEEKS fluticasone propionate 50 mcg/actuation Active ? Not available nasal spray,suspension hydrocodone 7.5 mg-acetaminophen 325 mg tablet Completed ? 06/14/2020 TAKE 1 TABLET BY MOUTH EVERY 6 HOURS NEEDED FOR PAIN hydroxyzine HCl 50 mg tablet Active ? Not available imipramine 25 mg tablet Completed ? 06/14/20 20 TAKE 1 TABLET BY MOUTH EVERY DAY methylprednisolone 4 mg tablets in a dose pack Completed ? 06/14/2020 TAKE 6 TABLETS ON DAY 1 DIRECTED ON PACKAGE AND DECREASE BY 1 TAB EACH DAY FOR A TOTAL OF 6 DAYS montelukast 10 mg tablet Completed ? 020 TAKE 1 TABLET BY MOUTH EVERY DAY Myrbetriq 25 mg tablet,extended release Active ? Not available Take 1 tablet every day by oral route for 30 days.
--- OUTSIDE RECORDS SUMMARY | 2021-11-02 09:41 | XMS_ITS ---
:1995 Author Care Team Providers Name Role Phone GURDEEP RECIO MD Program Coordinator [employer] [phone] Allergies Code Code System Name Reaction Severity Status Onset NKDA ? Medications Name Status Start Date Stop Date ? ? albuterol sulfate HFA 90 mcg/actuation aerosol inhaler Completed ? 11/29/2020 TAKE 2 PUFFS BY MOUTH EVERY 4 HOURS NEEDED FOR WHEEZE amoxicillin 875 mg tablet Completed ? 2018 TAKE 1 TABLET BY MOUTH TWICE A DAY FOR 10 DAYS amoxicillin 875 mg-potassium clavulanate 125 mg tablet Unknown ? Not available TK 1 T PO Q 12 H azithromycin 250 mg tablet Active ? Not a vailable TAKE 2 TABLETS BY MOUTH TODAY, THEN TAKE 1 TABLET DAILY FOR 4 D AYS azithromycin 500 mg tablet Unknown ? Not a vailable benzonatate 100 mg capsule Unknown ? Not a vailable cefdinir 300 mg capsule Completed ? 09/20/19 21 TAKE 1 CAPSULE BY MOUTH EVERY 12 HOURS cephalexin 500 mg capsule Completed ? 2019 cetirizine 10 mg tablet Completed ? 11/30/19 21 ciprofloxacin 500 mg tablet Completed ? 10/2017 TAKE 1 TABLET BY MOUTH EVERY 12 HOURS FOR 5 DAYS clarithromycin 500 mg tablet Completed ? 10/2017 cyclobenzaprine 10 mg tablet Unknown ? Not available diazepam 5 mg tablet Unknown ? Not availab le TK 1 T PO Q 8 H PRF MUSCLE SPASMS. diazepam 5 mg-7.5 mg-10 mg rectal kit Completed ? 06/07/2018 please set at 10mg will administer in office dicyclomine 20 mg tablet Unknown ? Not deborah ilable TK 1 T PO Q 6 H Elavil 25 mg tablet Completed ? 02/07/2014
--- OUTSIDE RECORDS SUMMARY | 2021-11-02 09:42 | XMS_ITS ---
:1995 Author Care Team Providers Name Role Phone MOE MAO Primary Care Provider [phone] Allergies Code Code System Name Reaction Severity Status Onset NKDA ? Medications Name Status Start Date Stop Date ? ? albuterol sulfate HFA 90 mcg/actuation aerosol inhaler Active ? Not available TAKE 2 PUFFS BY MOUTH EVERY 4 HOURS NEEDED FOR WHEEZE amoxicillin 875 mg tablet Completed ? 2018 TAKE 1 TABLET BY MOUTH TWICE A DAY FOR 10 DAYS amoxicillin 875 mg-potassium clavulanate 125 mg tablet Unknown ? Not available TK 1 T PO Q 12 H azithromycin 250 mg tablet Completed ? 04/02 azithromycin 500 mg tablet Unknown ? Not a vailable benzonatate 100 mg capsule Unknown ? Not a vailable cefdinir 300 mg capsule Active ? Not avai lable TAKE 1 CAPSULE BY MOUTH EVERY 12 HOURS cephalexin 500 mg capsule Completed ? 2019 cetirizine 10 mg tablet Active ? Not avai lable ciprofloxacin 500 mg tablet Completed ? 10/2017 [...] Elavil 25 mg tablet Completed ? 02/07/2014 Take 1 tablet ev
[2021-11-02 09:53] LABS: Basophils Percent Auto 0.1 % (0.2-1.2); Eosinophils Absolute Auto 0.1 K/mm3 (0-0.3); Eosinophils Percent Auto 0.5 % (0-4.4); Hematocrit 39.5 % (37.0-47.0); Hemoglobin 13.3 g/dL (12.0-15.0); Immature Granulocyte Absolute 0.11 K/mm3 (0.00-0.031); Immature Granulocyte Percent A 0.8 % (0-0.5); Immature Platelet Fraction Pct 7.9 % (0.9-11.2); Lymphocytes Absolute Auto 2.11 K/mm3 (0.9-3.2); Lymphocytes Percent Auto 15.7 % (18.3-44.2); Mean Corpuscular HGB Conc 33.7 g/dl (32-36); Mean Platelet Volume 11.1 fl (7.4-10.4); Monocytes Absolute Auto 0.6 K/mm3 (0.1-0.6); Monocytes Percent Auto 4.7 % (2.6-8.5); Neutrophils Absolute Auto 10.5 K/mm3 (1.3-6.7); Neutrophils Percent Auto 78.2 % (45.5-73.1); Platelet Count Result 190 k/mm3 (150-375); Red Blood Count 4.16 M/mm3 (4.2-5.4); Red Cell Distribution Width 12.8 % (11.5-14.5); White Blood Count 13.5 K/mm3 (4.5-10.0)
[2021-11-02] MEDS: OXYTOCIN 30 UNITS/NS 500 ML 30 UNITS/500 ML BAG 999 UNITS IV CONT (10:37)
[2021-11-02 10:45] LABS: Alanine Aminotransferase 16 U/L (4-35); Albumin Level 3.5 g/dL (3.5-5.1); Alkaline Phosphatase 189 U/L (38-126); Anion Gap 6 mmol/L (8-16); Aspartate Amino Transferase 22 U/L (14-36); Bilirubin,Total < 0.1 mg/dL (0.2-1.3); Blood Urea Nitrogen 7 mg/dL (7-17); Calcium 8.6 mg/dL (8.4-10.2); Carbon Dioxide 19 mmol/L (22-30); Chloride 108 mmol/L (98-107); Estimated CRCL calculation 144 ml/min; Estimated Glomerular Filt Rate > 60; Glucose 94 mg/dL (65-110); Sodium 133 mmol/L (137-145)
--- NOTE | 2021-11-02 10:49 | PM.IMHP ---
H&P: HPI History of Present Illness Date/Time: 11/02/21 10:00 Simin is a 26yo @ 38.4wks ([facility] 11/12/21) who presented in active labor to L&D; found to be 7-8cm w/ bulging bag. No VB or LOF. Good movement. Her was complicated by: - h/o PEC on ASA - elevated glucola; normal 3 hour - Obesity Chief Complaint: contractions Review of Systems Review of Systems: All systems reviewed & are unremarkable except as noted in HPI and below (HPI) [facility] Past Medical History Medical History Abnormal glucose tolerance in Allergies Anemia Back problem Ear problem Encounter for insertion of mirena IUD 01/04/13 insertion 03/23/13 removal Encounter for insertion of ParaGard IUD 04/30/17 insertion 07/30/20 removal Heartburn History of frequent headaches History of insomnia IBS (irritable bowel syndrome) Missed 01/09/21 suction d&c Thyroid nodule Surgical History Surgical History H/O endoscopic sinus surgery 12/19/19 maxillary sinus History of bladder surgery 03/01/18 Family History Family History Grandparent Cervical cancer maternal grandmother Diabetes mellitus maternal grandmother Kidney failure Chronic obstructive pulmonary disease Cerebrovascular accident Mother Diabetes mellitus Hypertension Neuropathy Social History Social History Smoking status: Never smoker Additional smoking assessment comments: Quit smoking in 2012 Substance use: never Gender identity (if verbalized by the patient): Female Spiritual care concerns: No Meds Home Medications and Allergies Home Medications Medication Instructions Recorded Confirmed Type vitamins-iron fumarate 65 1 tablet PO DAILY 07/29/21 11/02/21 History mg iron-folic acid 1 mg tablet Allergies Allergy/AdvReac Type Severity Reaction Status Date / Time adhesive tape Allergy Rash Verified 11/02/21 09:59 Vital Signs Vital Signs - 24 hr 11/02/21 10:02 11/02/21 10:49 Pulse Rate 82 78 Blood Pressure 134/73 148/67 H Exam Const: General: in distress (with contractions) Nutritional Appearance: obese morbidly obese Resp: Effort & Inspection: normal respiratory effort Cardio: Rate: regular rate GI: GI Palp: Yes Soft to palpation : Other: FHT's: 130/ mod forrest/ no accels/ no decels - cat 1 TOCO: ctx's q 3-5 min Cervix: 7/C/0 Membranes: AROM, thin mec @ 1008 Presentation: cephalic H&P: Results Labs Labs: Short CBC 11/02/21 Range/Units 09:47 WBC 13.5 H (4.5-10.0) K/mm3 Hgb 13.3 (12.0-15.0) g/dL Hct 39.5 (37.0-47.0) % Plt Count 190 (150-375) k/mm3 BMP 11/02/21 10:30 Sodium 133 L Potassium 4.0 Chloride 108 H Carbon Dioxide 19 L BUN 7 Creatinine 0.60 L Glucose 94 Calcium 8.6 Liver Function 11/02/21 Range/Units 10:30 Total Bilirubin < 0.1 L (0.2-1.3) mg/dL AST 22 (14-36) U/L ALT 16 (4-35) U/L Alkaline Phosphatase 189 H (38-126) U/L Albumin 3.5 (3.5-5.1) g/dL Assessment and Plan Assessment and plan (1) Active labor at term: Status: Acute Additional Plan - admit to L&D - anticipate soon
--- NOTE | 2021-11-02 10:57 | WPDHPUPDATE1 ---
History and Physical Update Update Date/Time: 11/02/21 10:57 History and Physical has been reviewed, including an updated exam of the patient. There are NO changes in the patient's condition. Risks, benefits, and alternatives have been discussed and questions answered. Patient agrees to proceed with procedure.
--- NOTE | 2021-11-02 10:57 | PM.OBPRVD ---
OB - Delivery Note Procedure Delivery date: 11/02/21 Delivery augmentation: Rupture of Membranes Delivery monitor: External FHT and External Uterine Route of delivery: Laceration Description: None Specimen: No Quantitative Blood Loss (ml): 50 Anesthesia type: None Disposition: Floor Baby Date of : 11/02/21 Time of : 10:37 Weeks of gestation at delivery: 38 (.4) gender: Male Weight (pounds): 9 Weight (ounces): 9 presentation: vertex position: Right Occiput Anterior Placenta delivery description: Expressed Cord Vessel Description: 3 Vessels and Delayed Cord Clamping score one minute: 9 score five minutes: 9 Narrative: Simin presented in active labor and was found to be 78 cm dilated. Rupture of membranes was performed with thin meconium noted and pedi was notified. After approximately 30-45 minutes she became fully dilated. She pushed for 1 contraction and delivered the head over intact perineum. She easily delivered the infant's shoulders and body without complication. The was immediately placed skin to skin and had spontaneous cry. The pedi team suctioned the infants mouth and nose. Delayed cord clamping was performed. The umbilical cord was then clamped and cut. With Pitocin running, and gentle downward traction on the cord, the placenta delivered without complications. Minimal bleeding was noted. The patient was examined and no lacerations were identified. Sponge, lap, needle, and instrument counts were correct at the end of the procedure. Mom and baby were left in the birthing suite in a stable condition. [facility] Delivery Billing Delivery Delivery: Delivery Charge
[2021-11-02] MEDS: IBUPROFEN 600 MG TABLET PO ×3 (11:00→23:32)
[2021-11-02] MEDS: BENZOCAINE 20% AER SPR (*SP) 56 GM CAN 1 SPRAY TOPICAL (11:16)
[2021-11-02] MEDS: OXYTOCIN 30 UNITS/NS 500 ML 30 UNITS/500 ML BAG 125 UNITS IV CONT (11:16)
[2021-11-02] MEDS: WITCH HAZEL 40 PADS 1 PAD TOPICAL (11:17)
--- NOTE | 2021-11-02 13:25 | PC.NURSE ---
Patient transferred to post room #283 per wheelchair. Support person present. Oriented to unit, room, information board, rooming in, admission packet and security measures. Patient verbalizes understanding.
[2021-11-02] MEDS: ACETAMINOPHEN 325 MG TABLET 650 MG PO (13:53)
[2021-11-02] MEDS: DOCUSATE SODIUM 100 MG CAPSULE PO (17:21)
[2021-11-03] MEDS: ACETAMINOPHEN 325 MG TABLET 650 MG PO ×2 (04:34→18:06)
[2021-11-03 04:35] VITALS: BP 132/76; PULSE 75; RESP 18; TEMP 36.3
[2021-11-03 05:04] LABS: Hematocrit 35.7 % (37.0-47.0); Hemoglobin 11.5 g/dL (12.0-15.0)
[2021-11-03 08:00] VITALS: BP 124/66; PULSE 79; RESP 16; TEMP 36.3
[2021-11-03] MEDS: WITCH HAZEL 40 PADS 1 PAD TOPICAL (08:25)
[2021-11-03] MEDS: BENZOCAINE 20% AER SPR (*SP) 56 GM CAN 1 SPRAY TOPICAL (08:25)
[2021-11-03] MEDS: IBUPROFEN 600 MG TABLET PO ×3 (08:26→22:13)
[2021-11-03] MEDS: DOCUSATE SODIUM 100 MG CAPSULE PO ×2 (08:26→16:04)
[2021-11-03] MEDS: MULTIVIT/MIN/PREN/FOL AC/IRON TABLET 1 TAB PO (08:26)
[2021-11-03 09:14] LABS: Rapid Plasma Reagin Non-Reactive (NonReactive)
--- NOTE | 2021-11-03 09:52 | PM.OBPNVD ---
OB - PN: Subj Subjective Date/time seen: 11/03/21 09:50 Narrative: PPD#1 Simin reports doing well today. 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 Her pain is controlled. She is tolerating regular diet, voiding, passing gas, and ambulating without issues. She is breast feeding. She would like her son circumcised. She would like to go home tomorrow. OB - PN: Obj Data Labs CBC & Chem 7: 11/03/21 04:41 11/02/21 10:30 Labs: Laboratory Results - last 24 hr 11/02/21 11/02/21 11/02/21 09:47 09:47 10:30 WBC 13.5 H RBC 4.16 L Hgb 13.3 Hct 39.5 MCV 95.0 MCH 32.0 MCHC 33.7 RDW 12.8 Plt Count 190 MPV 11.1 H Immature Gran % (Auto) 0.8 H Neut % (Auto) 78.2 H Lymph % (Auto) 15.7 L Cole % (Auto) 4.7 Eos % (Auto) 0.5 Baso % (Auto) 0.1 L Lymph # (Auto) 2.11 Cole # (Auto) 0.6 Eos # (Auto) 0.1 Baso # (Auto) 0.0 Abs Immat Gran (auto) 0.11 H Absolute Neuts (auto) 10.5 H Absolute Nucleated RBC 0.0 Nucleated RBC % 0.0 % Immature Plt Fraction 7.9 Sodium 133 L Potassium 4.0 Chloride 108 H Carbon Dioxide 19 L Anion Gap 6 L BUN 7 Creatinine 0.60 L Estim Creat Clear Calc 144 Estimated GFR > 60 Glucose 94 Uric Acid 5.0 Calcium 8.6 Total Bilirubin < 0.1 L AST 22 ALT 16 Alkaline Phosphatase 189 H Total Protein 6.0 L Albumin 3.5 Blood Type AB Positive Antibody Screen Negative 11/03/21 04:41 WBC RBC Hgb 11.5 L Hct 35.7 L MCV MCH MCHC RDW Plt Count MPV Immature Gran % (Auto) Neut % (Auto) Lymph % (Auto) Cole % (Auto) Eos % (Auto) Baso % (Auto) Lymph # (Auto) Cole # (Auto) Eos # (Auto) Baso # (Auto) Abs Immat Gran (auto) Absolute Neuts (auto) Absolute Nucleated RBC Nucleated RBC % % Immature Plt Fraction Sodium Potassium Chloride Carbon Dioxide Anion Gap BUN Creatinine Estim Creat Clear Calc Estimated GFR Glucose Uric Acid Calcium Total Bilirubin AST ALT Alkaline Phosphatase Total Protein Albumin Blood Type Antibody Screen OB - PN A/P Assessment and Plan (1) Normal vaginal delivery of fourth : Code(s): O80 - Encounter for full-term uncomplicated delivery Status: Acute Plan day: 1 Plan: routine care and discharge home (tomorrow) Comments: - Pelvic rest; take meds as prescribed - ER return precautions: fever, n/v/abd pain, bleeding, HTN Time Spent With Patient Time: Total time spent is greater than 50% in coordination of care (as documented) at patient's floor/unit and/or counseling patient: Review of Systems Constitutional: Constitutional: Denies chills, Denies fever(s) and Denies headache(s) Eyes: Eyes: Denies change in vision ENT: Denies dizziness and Denies headache(s) Cardiovascular: Cardiovascular: Denies chest pain, Denies palpitations and Denies dyspnea Respiratory: Respiratory: Denies cough and Denies dyspnea Gastrointestinal: Gastrointestinal: Denies nausea and Denies vomiting Neurologic: Denies dizziness and Denies headache(s) Endocrine: Endocrine: Denies palpitations Exam Const: General: cooperative, comfortable and no acute distress Orientation/consciousness: patient oriented x3 Resp: Effort & Inspection: normal respiratory effort Auscultation: clear to auscultation bilaterally Cardio: Rate: regular rate GI: Inspection: non-distended GI Palp: No abdominal tenderness and Yes Soft to palpation Auscultation: normal bowel sounds : Other: fundus firm Skin: General skin exam: normal color Neuro: General: patient oriented x3 Extrem: General: normal to inspection Psych: Appearance: grossly normal Affect: normal affect Attitude: cooperative
--- NOTE | 2021-11-03 14:47 | PC.NURSE ---
[id number] Introductions were made, then consulted with patient to assess needs related to . Mother led the conversation with her experience feeding her infant so far. Mother works well with her and has infant effectively without any discomfort. Encouraged understanding of the benefits of skin to skin (unwrapping infant and placing vertically on her chest), responsive feeding and how to watch for early feeding signs, frequency of feeding on demand about every 8-12 times in 24 hours (every 2-3 hours), milk production, duration of feeding, signs of adequate intake/output and how to record on the feeding sheet. Reviewed positioning and ear, shoulder, hip alignment, supporting the breast, asymmetrical latch (off-center), and leading with the chin with a big open side gape. Education given to mother of how to visualize suck/swallow ratios and drinking at the breast. was able to maintain latch without discomfort to mother. Nipple care reviewed with optimal latch and good positioning. Reviewed good handwashing when or touching the breast/nipples to prevent infection. Resources used to facilitate learning were used with the mom and baby guide. Mother voiced understanding of responsive feedings, stimulating with skin to skin, hand expressed colostrum, touch, talking to to encourage if it has been 2 -3 hours since the start of the last , to call if does not latch or there is discomfort with . Reported to the primary RN.
[2021-11-03] MEDS: POLYSACCHARIDE IRON COMPLEX 150 MG CAPSULE PO (18:06)
[2021-11-03 19:00] VITALS: BP 125/65; PULSE 76; RESP 18; TEMP 36.4; O2SAT 100
[2021-11-04] MEDS: IBUPROFEN 600 MG TABLET PO ×2 (05:46→12:33)
[2021-11-04] MEDS: DOCUSATE SODIUM 100 MG CAPSULE PO (07:09)
[2021-11-04] MEDS: MULTIVIT/MIN/PREN/FOL AC/IRON TABLET 1 TAB PO (07:10)
[2021-11-04 07:15] VITALS: BP 119/69; PULSE 79; RESP 18; TEMP 36.6
--- NOTE | 2021-11-04 07:16 | P.DS_ITS ---
DS: Admitting Diagnosis Discharge Date 11/04/21 Admitting Diagnosis active labor DS: Discharge Diagnosis Discharge Diagnosis (1) Normal vaginal delivery of fourth : Code(s): O80 - Encounter for full-term uncomplicated delivery Status: Acute OB - DS: Summary OB Procedures : Ultrasound OB Procedures Intrapartum: Spontaneous Vag Delivery OB Procedures: : None Peripartum Data Infant Delivery Method: Natural Vaginal Laceration Description: None complications: none [place] 1: Gender: Male Disposition of : home Status at Discharge Functional status at discharge: independent ambulation Overall status at discharge: patient is back to baseline Time Spent with Patient Time attestation: Total time spent providing and/or coordinating discharge services: Time spent: Less than 30 minutes Exam Const: General: cooperative, comfortable and no acute distress Orientation/consciousness: patient oriented x3 Resp: Effort & Inspection: normal respiratory effort Auscultation: clear to auscultation bilaterally Cardio: Rate: regular rate GI: Inspection: non-distended GI Palp: No abdominal tenderness and Yes Soft to palpation Auscultation: normal bowel sounds : Other: fundus firm Skin: General skin exam: normal color Neuro: General: patient oriented x3 Extrem: General: normal to inspection Psych: Appearance: grossly normal Affect: normal affect Attitude: cooperative DS: Data Data Completed and Pending Labs on day of discharge: Labs from last 24 hours 11/02/21 09:47 RPR Non-reactive Discharge Plan Discharge Attending physician on discharge: Sulema Romano Discharging Clinician: Sulema Romano Anticipated Discharge Date/Time: 11/04/21 10:00 Patient Disposition: Home, Self-Care Activity: may shower and pelvic rest Diet: regular Patient Instructions: Antibiotic Form Stand Alone Forms: General Discharge Information Follow-up/Referrals: Sulema Romano MD [Physician] - 4 Weeks Discharge Medications: New acetaminophen [Mapap (acetaminophen)] 325 mg Tablet 650 mg PO Q6H PRN (Reason: Mild Pain (1-3) Or Headache) 10 Days Qty: 60 RF: 0 ibuprofen 600 mg Tablet 600 mg PO Q6H PRN (Reason: Cramping) 10 Days Qty: 40 RF: 0 Continued vit-iron fum-folic ac 65 mg iron- 1 mg tablet 1 tablet PO DAILY 90 Days Qty: 90 RF: 2 Date of admission: 11/02/21 09:29 Primary Care Provider: Lv,Silva Lal Admitting Provider: Jay Lucas Attending physician on admission: Jay Lucas Condition: Stable
--- NOTE | 2021-11-04 08:00 | PC.NURSE ---
Patient was given the opportunity to view the discharge video Mother & Baby Care, The First Two Weeks and to ask questions. Patient declined viewing the video and has been given the mother/baby guide for home reference.
--- NOTE | 2021-11-04 10:23 | PC.NURSE ---
Self care and infant care discharge instructions given including follow up visit date and time. Mother voiced understanding. No questions or concerns voiced. FOB at side.
--- NOTE | 2021-11-04 15:16 | PC.NURSE ---
[id number] Mother led the conversation with her experience and plan to feed her so far and her ability to [independently latch infant optimally without discomfort/ continue with the plan of attempting to breastfeed/pump/supplement to feed ]. Reminded parents to use good handwashing technique to prevent infection. Mother is feeding appropriately for growth of infant and understands stimulating infant to eat if needed. has had appropriate feedings in the last 24 hours meets the outcomes for weight, output and jaundice at this time. Mother states she is confident to continue effectively /pumping/supplementing her at home or when to call for assistance and denies any additional assistance or education at this time. Reinforced understanding of milk production, transition of milk, signs of adequate intake, prevention/relief of engorgement, responsive after visualizing feeding cues, the different methods of stimulating infant to breastfeed 2-3 hours after the start of the last feeding, community resources, medication information reviewed per [employer] and when to call a provider using the resource of the mom and baby guide/[facility] website. Mother voiced understanding of the education shared. Reported to the primary RN.
[2021-11-05 11:43] VITALS: BP 139/64; PULSE 70; RESP 20; TEMP 36.8; O2SAT 99
== END 2021-11-04 14:57 | disposition home or self-care (01) | DRG 560 ==
LOC: ANHOB2 11-04 08:25 → ANHLDR 11-05 10:39 → ANHOB2 11-05 10:39
PROVIDERS: Admitting Provider Obstetrics & Gynecology Gynecology; PCP Family Medicine; Visit Provider Obstetrics & Gynecology
DX: O77.0 Labor and delivery complicated by meconium in amniotic fluid (principal); Z37.0 Single live birth; Z3A.38 38 weeks gestation of pregnancy; O99.214 Obesity complicating childbirth; E66.01 Morbid (severe) obesity due to excess calories; O99.02 Anemia complicating childbirth; D64.9 Anemia, unspecified
CPT/HCPCS: 36415; 80053; 84550; 85014; 85018; 85025; 85055; 86592; 86850; 86900; 86901; A9270; J2590

== ENCOUNTER 2022-03-23 11:48 | Outpatient (CLI) | payer OTHER, SELFPAY ==
[2022-03-23 12:11] LABS: Eosinophils Absolute Auto 0.1 K/mm3 (0-0.3); Eosinophils Percent Auto 1.3 % (0-4.4); Hematocrit 40.2 % (37.0-47.0); Hemoglobin 13.4 g/dL (12.0-15.0); Immature Granulocyte Absolute 0.01 K/mm3 (0.00-0.031); Immature Granulocyte Percent A 0.3 % (0-0.5); Lymphocytes Absolute Auto 1.15 K/mm3 (0.9-3.2); Lymphocytes Percent Auto 29.7 % (18.3-44.2); Mean Corpuscular HGB Conc 33.3 g/dl (32-36); Mean Corpuscular Volume 89.9 fl (80-100); Mean Platelet Volume 9.8 fl (7.4-10.4); Monocytes Absolute Auto 0.2 K/mm3 (0.1-0.6); Monocytes Percent Auto 5.4 % (2.6-8.5); Neutrophils Absolute Auto 2.5 K/mm3 (1.3-6.7); Neutrophils Percent Auto 63.3 % (45.5-73.1); Platelet Count Result 233 k/mm3 (150-375); Red Blood Count 4.47 M/mm3 (4.2-5.4); Red Cell Distribution Width 11.6 % (11.5-14.5); White Blood Count 3.9 K/mm3 (4.5-10.0)
[2022-03-25 12:49] LABS: DHEA-Sulfate 272 mcg/dL (18-391)
[2022-03-26 12:17] LABS: Testosterone Free 4.4 pg/mL (0.1-6.4); Testosterone Total 33 ng/dL (2-45)
[2022-03-26 20:35] LABS: FSH 5.2 mIU/mL (***); Prolactin 6.8 ng/mL (***)
[2022-03-28 04:57] LABS: Estradiol, Ultrasensitive 101 pg/mL
[2022-03-28 07:09] LABS: Progesterone 0.5 ng/mL (***)
== END 2022-03-23 11:49 | disposition home or self-care (01) ==
LOC: ANHLAB 11:50
PROVIDERS: PCP Family Medicine; Visit Provider Obstetrics & Gynecology
DX: N93.9 Abnormal uterine and vaginal bleeding, unspecified (principal)
CPT/HCPCS: 36415; 82627; 82670; 83001; 83498; 84144; 84146; 84402; 84403; 85025